=== PATIENT | male | born 1980 | race Caucasian/White ===

== ENCOUNTER 2019-01-02 18:05 | Emergency (ER) | payer MEDICAID ==
[2019-01-02] MEDS ORDERED: Sodium Chloride 0.9% 1,000 ML IV ONE (18:44)
--- NOTE | 2019-01-02 18:49 | ED Physician Chart ---
ED Chief Complaint/HPI - Patient Information Date Seen:: 01/02/19 Time Seen:: 18:10 Chief Complaint:: AMS History of Present Illness:: pt brought to ER via EMS because of AMS; pt found on the street with ALOC; no report of trauma, H/As, neck pain, C/P, SOB, Abd. Pain, or urinary s/s Vitals:: Vital Signs - 8 hr 01/02/19 18:11 Temp 97.3 F HR 102 RR 18 BP 129/80 O2 Sat % 100 Historian:: Patient, EMS Review:: Nurse's Note Reviewed, Old Chart Reviewed, EMS run form Reviewed <Lul Cervantes - Last Filed: 01/02/19 18:45> - Patient Information Allergies:: Allergies Allergy/AdvReac Type Severity Reaction Status Date / Time No Known Allergies Allergy Verified 01/02/19 20:12 Vitals:: Vital Signs - 8 hr 01/03/19 06:00 Temp 98.4 F HR 86 RR 18 O2 Sat % 95 <Angeles Phillips - Last Filed: 01/03/19 12:21> ED Review of Systems - Review of Systems General/Constitutional: No fever, No chills, No weight loss, No weakness, No diaphoresis, No edema, No loss of appetite Skin: No skin lesions, No rash, No bruising Head: No headache, No light-headedness Eyes: No loss of vision, No pain, No diplopia ENT: No earache, No nasal drainage, No sore throat, No tinnitus Neck: No neck pain, No swelling, No thyromegaly, No stiffness, No mass noted Cardio Vascular: No chest pain, No palpitations, No PND, No orthopnea, No edema Pulmonary: No SOB, No cough, No sputum, No wheezing GI: No nausea, No vomiting, No diarrhea, No pain, No melena, No hematochezia, No constipation, No hematemesis G/U: No dysuria, No frequency, No hematuria, No nacturia Musculoskeletal: No bone or joint pain, No back pain, No muscle pain Endocrine: No polyuria, No polydipsia Psychiatric: No prior psych history, No depression, No anxiety, No suicidal ideation, No homicidal ideation, No auditory hallucination, No visual hallucination Hematopoietic: No bruising, No lymphadenopathy Allergic/Immuno: No urticaria, No angioedema Neurological: No syncope, No focal symptoms, No weakness, No paresthesia, No headache, No seizure, No dizziness, No confusion, No vertigo <Lul Cervantes - Last Filed: 01/02/19 18:45> ED Past Medical History - Past Medical History Obtainable: Yes Past Medical History: Other (ETOH Abuse) Family History: None Social History: Smoker, Alcohol, No Drug Use, Single, Homeless Surgical History: None Medication: Reviewed <Lul Cervantes - Last Filed: 01/02/19 18:45> Family Medical History - Family Member Mother History Unknown: Yes Ethnicity: <JacquelineAngeles - Last Filed: 01/03/19 12:21> ED Physical Exam - Physical Examination General/Constitutional: Awake, Well-developed, well-nourished, Alert, No distress, GCS 15, Non-toxic appearing, Ambulatory Head: Atraumatic Eyes: Lids, conjuctiva normal, PERRL, EOMI Skin: Nl inspection, No rash, No skin lesions, No ecchymosis, Well hydrated, No lymphadenopathy ENMT: External ears, nose nl, TM canals nl, Nasal exam nl, Lips, teeth, gums nl , Oropharynx nl, Tonsils nl Neck: Nontender, Full ROM w/o pain, No JVD, No nuchal rigidity, No bruit, No mass, No stridor Respiratory: Nl effort/Exclusion, Clear to Auscultation, No Wheeze/Rhonchi/Rales Cardio Vascular: RRR, No murmur, gallop, rubs, NL S1 S2, Carotid/Femoral/Distal pulses equal bilaterally GI: No tenderness/rebounding/guarding, No organomegaly, No hernia, Normal BS's, Nondistended, No mass/bruits, No McBurney tenderness : No CVA tenderness Extremities: No tenderness or effusion, Full ROM, normal strength in all extremities, No edema, Normal digits & nails Neuro/Psych: Alert/oriented, DTR's symmetric, Normal sensory exam, Normal motor strength, Judgement/insight normal, Mood normal, Normal gait, No focal deficits Misc: Normal back, No paraspinal tenderness <Lul Cervantes - Last Filed: 01/02/19 18:45> ED Labs/Radiology/EKG Results - Lab Results Results: Laboratory Tests 01/02/19 01/02/19 01/02/19 19:08 19:08 19:08 WBC 6.7 RBC 4.58 Hgb 12.7 Hct 38.2 L MCV 83.5 MCH 27.8 MCHC Differential 33.3 RDW 14.5 Plt Count 355 MPV 7.2 Neutrophils % 65.7 Lymphocytes % 26.7 Monocytes % 6.0 Eosinophils % 0.5 Basophils % 1.1 PT 10.1 INR 0.97 Sodium 144 Potassium 3.3 L Chloride 105 Carbon Dioxide 23.7 Anion Gap 18.6 H BUN 10 Creatinine 0.8 Est GFR ( Amer) > 60.0 Est GFR (Non-Af Amer) > 60.0 BUN/Creatinine Ratio 12.5 Glucose 105 Calcium 8.7 Total Bilirubin 0.4 AST 88 H ALT 52 Alkaline Phosphatase 58 Creatine Kinase 1325 H CK-MB (CK-2) 11.2 H Troponin I B-Natriuretic Peptide Total Protein 7.3 Albumin 4.3 Globulin 3.0 Albumin/Globulin Ratio 1.4 Triglycerides 183 H Cholesterol 205 H LDL Cholesterol Direct 122 HDL Cholesterol 61 Amylase Lipase Ethyl Alcohol 01/02/19 01/02/19 01/02/19 19:08 19:08 19:08 WBC RBC Hgb Hct MCV MCH MCHC Differential RDW Plt Count MPV Neutrophils % Lymphocytes % Monocytes % Eosinophils % Basophils % PT INR Sodium Potassium Chloride Carbon Dioxide Anion Gap BUN Creatinine Est GFR ( Amer) Est GFR (Non-Af Amer) BUN/Creatinine Ratio Glucose Calcium Total Bilirubin AST ALT Alkaline Phosphatase Creatine Kinase CK-MB (CK-2) Troponin I 0.01 B-Natriuretic Peptide 8.9 Total Protein Albumin Globulin Albumin/Globulin Ratio Triglycerides Cholesterol LDL Cholesterol Direct HDL Cholesterol Amylase 52 Lipase 48 Ethyl Alcohol 01/02/19 19:08 WBC RBC Hgb Hct MCV MCH MCHC Differential RDW Plt Count MPV Neutrophils % Lymphocytes % Monocytes % Eosinophils % Basophils % PT INR Sodium Potassium Chloride Carbon Dioxide Anion Gap BUN Creatinine Est GFR ( Amer) Est GFR (Non-Af Amer) BUN/Creatinine Ratio Glucose Calcium Total Bilirubin AST ALT Alkaline Phosphatase Creatine Kinase CK-MB (CK-2) Troponin I B-Natriuretic Peptide Total Protein Albumin Globulin Albumin/Globulin Ratio Triglycerides Cholesterol LDL Cholesterol Direct HDL Cholesterol Amylase Lipase Ethyl Alcohol 496 H <Angeles Phillips - Last Filed: 01/03/19 12:21> ED Septic Shock - . Is Septic Shock (SBP<90, OR Lactate>4 mmol\L) present?: No - <6hrs of presentation: Vital Signs: Vital Signs - 8 hr 01/02/19 18:11 Temp 97.3 F HR 102 RR 18 BP 129/80 O2 Sat % 100 <Lul Cervantes - Last Filed: 01/02/19 18:45> - <6hrs of presentation: Vital Signs: Vital Signs - 8 hr 01/03/19 06:00 Temp 98.4 F HR 86 RR 18 O2 Sat % 95 <Angeles Phillips - Last Filed: 01/03/19 12:21> ED Reassessment (Disposition) - Reassessment Reassessment Condition:: Improved - Diagnosis Diagnosis:: AMS; ALOC; ETOH Intoxication/Abuse <Lul Cervantes - Last Filed: 01/02/19 18:45> - Reassessment Reassessment:: Pt woke up from ETOH intoxication and felt better. D/c home. - Patient Disposition Discharge/Transfer:: Home <Angeles Phillips - Last Filed: 01/03/19 12:21>
[2019-01-02 19:31] LABS: % BASOPHILS 1.1 % (0.0-2.0); % EOSINOPHILS 0.5 % (0.0-5.0); % LYMPHOCYTES 26.7 % (20.0-50.0); % NEUTROPHILS 65.7 % (40.0-80.0); BASOPHILE ABSOLUTE 0.1 Th/cumm (0-0.2); HEMATOCRIT 38.2 % (41.0-60); HEMOGLOBIN 12.7 gm/dL (12-16); LYMPHOCYTE ABSOLUTE 1.8 Th/cmm (1.5-3.0); MEAN CELL VOLUME 83.5 fl (80-99); MEAN CORPUSCULAR HEMOGLOBIN 27.8 pg (26.0-30.0); MEAN CORPUSCULAR HGB CONC 33.3 pg (28.0-36.0); MEAN PLATELET VOLUME 7.2 fl; MONOCYTE ABSOLUTE 0.4 Th/cmm (0.3-1.0); NEUTROPHILE ABSOLUTE 4.4 Th/cmm (1.8-8.0); PLATELET COUNT 355 Th/cmm (150-400); RED BLOOD COUNT 4.58 Mil/cmm (4.30-5.70); RED CELL DISTRIBUTION WIDTH 14.5 % (11.5-20.0); WHITE BLOOD COUNT 6.7 Th/cmm (4.8-10.8)
[2019-01-02 19:36] LABS: INR 0.97 (0.5-1.4); PROTHROMBIN TIME (TEST) 10.1 SECONDS (9.5-11.5)
[2019-01-02 19:43] LABS: ALB/GLOB RATIO 1.4 (1.0-1.8); ALBUMIN 4.3 gm/dL (4.2-5.5); ALKALINE PHOSPHATASE 58 U/L (34-104); ANION GAP 18.6 (7.0-16.0); BILIRUBIN,TOTAL 0.4 mg/dL (0.3-1.0); BUN - UREA NITROGEN 10 mg/dL (7-25); CALCIUM SERUM 8.7 mg/dL (8.6-10.3); CARBON DIOXIDE 23.7 mEq/L (21.0-31.0); CHLORIDE 105 mEq/L (98-107); CHOLESTEROL 205 mg/dL (<200); CREATININE - SERUM 0.8 mg/dL (0.7-1.3); CREATININE KINASE 1325 U/L (30-223); GFR AFRICAN-AMERICAN > 60.0 ml/min (>90); GFR NON AFRICAN-AMERICAN > 60.0 ml/min; GLUCOSE 105 mg/dL (70-105); HDL -HIGH DENSITY LIPOPROTEIN 61 mg/dL (23-92); POTASSIUM SERUM 3.3 mEq/L (3.5-5.1); SGOT 88 U/L (13-39); SGPT/ALT 52 U/L (7-52); SODIUM SERUM 144 mEq/L (136-145); TOTAL PROTEIN,SERUM 7.3 gm/dL (6.0-8.3); TRIGLYCERIDES 183 mg/dL (<150)
[2019-01-02 19:49] LABS: AMYLASE SERUM 52 U/L (29-103); LIPASE 48 U/L (11-82)
== END 2019-01-03 06:25 | disposition home or self-care (01) ==
LOC: EDBD 18:05 → ER 18:05
DX: F10.129 Alcohol abuse with intoxication, unspecified (principal); R41.82 Altered mental status, unspecified; F17.200 Nicotine dependence, unspecified, uncomplicated; Z59.0 Homelessness; Y90.8 Blood alcohol level of 240 mg/100 ml or more
CPT/HCPCS: 36415-UA; 80053-TC; 80061-TC; 80320-TC; 82150-TC; 82550-TC; 82553; 83690-TC; 83880-TC; 84484-TC; 85025-TC; 85610-TC; 93005; 94760; J7030